=== PATIENT | male | born 1945 | race Caucasian/White ===

== ENCOUNTER 2020-02-03 07:42 | Inpatient (IN) | payer OTHER ==
[~2020-02-03] VITALS: Ht 167.6 cm; Wt 63.6 kg
[2020-02-03] MEDS ORDERED: ARIP2TAB35 PO (08:56)
[2020-02-03] MEDS ORDERED: LISI1TAB23 PO (08:56)
[2020-02-03] MEDS ORDERED: CHOL10003 PO (08:56)
[2020-02-03] MEDS ORDERED: CRESTOR40 MG PO (08:56)
[2020-02-03] MEDS ORDERED: VIT1TABL8 PO (08:56)
[2020-02-03] MEDS ORDERED: LORA0.5T21 PO (08:56)
[2020-02-03] MEDS ORDERED: BUSP30TA PO (08:56)
[2020-02-03] MEDS ORDERED: PARO10TA57 PO (08:56)
[2020-02-03] MEDS ORDERED: TAMS0.4C97 PO (08:56)
[2020-02-03] MEDS ORDERED: ASPI-889 PO (08:56)
[2020-02-03] MEDS ORDERED: TADA5TAB PO (08:56)
[2020-02-03] MEDS ORDERED: FLUO10CA13 PO (09:29)
[2020-02-03 10:24] VITALS: BP 115/55
[2020-02-03] MEDS ORDERED: MAGNESIUM HYDROXIDE 2,400 MG/30 ML ORAL.SUSP. PO PRN (11:15)
[2020-02-03] MEDS ORDERED: METHYL SALICYLATE/MENTHOL TOPICAL OINTMENT 57GM TUBE. TP PRN (11:15)
[2020-02-03] MEDS ORDERED: MAG HYDROX/AL HYDROX/SIMETH 30 ML ORAL.SUSP PO PRN (11:15)
[2020-02-03] MEDS ORDERED: ACETAMINOPHEN 325 MG TABLET PO PRN (11:15)
[2020-02-03 14:21] LABS: BASO % 0 % (0-3); EOS # 0.1 x10^3/uL (0.0-0.7); EOS % 2 % (0-3); HEMATOCRIT 45.4 % (39.0-53.0); HEMOGLOBIN 15.3 g/dL (13.0-17.5); LYMPH # 1.6 x10^3/uL (1.0-4.8); LYMPH % 20 % (24-48); MEAN CORPUSCULAR HEMOGLOBIN 33 pg (25-35); MEAN CORPUSCULAR HGB CONC 34 g/dL (31-37); MEAN CORPUSCULAR VOLUME 99 fL (79-100); MONO # 0.9 x10^3/uL (0.0-1.1); MONO % 11 % (0-9); NEUT # 5.5 x10^3uL (1.8-7.7); NEUT % 67 % (31-73); PLATELET COUNT 111 x10^3/uL (140-400); RED BLOOD COUNT 4.61 x10^6/uL (4.30-5.70); RED CELL DISTRIBUTION WIDTH 13.9 % (11.5-14.5); WHITE BLOOD COUNT 8.2 x10^3/uL (4.0-11.0)
[2020-02-03 14:38] LABS: BACTERIA,URINE 0 /HPF (0-FEW); BILIRUBIN,URINE NEG (NEG); CLARITY,URINE CLEAR; COLOR,URINE YELLOW; GLUCOSE,URINE NEG (NEG); NITRITE,URINE NEG (NEG); RBC,URINE OCC /HPF (0-2); SQUAMOUS EPITHELIAL CELL,UR OCC /LPF; UROBILINOGEN,URINE 0.2 mg/dL (0.2 mg/dL); WBC,URINE OCC /HPF (0-4)
[2020-02-03 15:33] LABS: ALBUMIN 3.6 g/dL (3.4-5.0); CREATININE 1.4 mg/dL (0.7-1.3); GFR 49.4; MAGNESIUM 2.1 mg/dL (1.8-2.4); POTASSIUM 4.2 mmol/L (3.5-5.1); TOTAL BILIRUBIN 0.5 mg/dL (0.2-1.0); TOTAL PROTEIN 7.1 g/dL (6.4-8.2)
[2020-02-03 15:45] VITALS: BP 110/55
[2020-02-03 16:08] LABS: THYROID STIM HORMONE (TSH) 1.582 uIU/mL (0.358-3.740)
--- NOTE | 2020-02-03 17:36 | CONS ---
DATE OF CONSULTATION: 02/03/2020 REASON FOR CONSULTATION: Medical management. HISTORY OF PRESENT ILLNESS: The patient is a 74-year-old male patient who was referred [facility] from [facility] on account of being depressed, feeling antsy all the time, having a total mental breakdown, cold sweats, sits in dark, fleeting thoughts of suicide, difficulty concentration, all this in a background of major depressive disorder. PAST MEDICAL HISTORY: Significant for male erectile dysfunction, essential hypertension, hyperlipidemia, obstructive pulmonary disease, type 2 diabetes mellitus, benign prostatic hypertrophy. He has also abdominal aortic aneurysm. PAST SURGICAL HISTORY: Unremarkable except for removal of basal cell carcinoma of his nose. PAST PSYCHIATRIC HISTORY: Significant for anxiety and depression. ALLERGIES: HE IS ALLERGIC TO LIPITOR AND ZETIA. MEDICATIONS: He is currently on following medications: He is on Flomax 0.4 mg daily, Crestor 40 mg at bedtime, lisinopril/hydrochlorothiazide 10/12.5 mg once a day, aspirin 81 mg once a day, fluoxetine 10 mg daily, Abilify 2 mg daily, lorazepam 0.5 mg twice a day, buspirone 30 mg twice a day, cholecalciferol 25 mcg once a day and multivitamin with mineral 1 tablet once a day. FAMILY HISTORY: Noncontributory. SOCIAL HISTORY: He is , lives with his . He has 2 sons, 1 at the age of 17 because of leukemia. The other son lives in [facility] and has 3 sons and a daughter. He is vaping, although trying to quit that. He does not drink alcohol or use recreational drugs. 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 REVIEW OF SYSTEMS: As per history of present illness. PHYSICAL EXAMINATION GENERAL: When I saw him this afternoon, he was sitting comfortably in his chair, in no apparent respiratory distress. There was no pallor, jaundice, cyanosis or thyromegaly. No jugular venous distention. No limb edema. VITAL SIGNS: His heart rate was 66, blood pressure was 110/55, temperature 97.1, respiratory rate was 16 and oxygen saturation was 94% on room air. HEAD, EYES, EARS, NOSE AND THROAT: Showed normocephalic, atraumatic. NECK: Supple. HEART: Showed normal first and second heart sounds. No gallop, rub or murmur. CHEST: Clear to auscultation. No crepitation or rhonchi. ABDOMEN: Distended, soft, nontender. No guarding or rigidity. No organomegaly. All hernial orifices intact. Bowel sounds normal. NEUROLOGIC: He was awake, alert, responding appropriately. All cranial nerves intact. EXTREMITIES: He moves all extremities without difficulty, ambulates without assistance or assistive devices. LABORATORY DATA: Showed white cell count of 8200, hemoglobin 15.3, hematocrit 45, MCV 99 and platelet count of 111,000. His chemistry showed a serum sodium 140, potassium 4.2, chloride 105, bicarbonate 25, anion gap of 10, BUN 30, creatinine 1.4, estimated GFR was 49 mL per minute. His glucose was 79, calcium was 9, magnesium was 2.1. Serum iron was 87, TIBC was 288 and iron saturation was 30. His total bilirubin, AST, ALT, alkaline phosphatase were normal. Total protein was 7.1, albumin was 3.6. His serum triglycerides were 84, total cholesterol 170, LDL was 97, VLDL was 16, HDL was 57, the ratio was 2. His TSH was normal at 1.582. His urinalysis showed the urine was yellow, clear with a pH of 6, specific gravity of 1.020. The urine was negative for protein, glucose, ketones, trace of blood and negative for nitrite and bilirubin. The urine was negative for leukocyte esterase, occasional rbc's, occasional wbc's and no bacteria. IMPRESSION: In summary, this is a 74-year-old male patient who was admitted on account of being depressed, feeling antsy all the time, having a total mental breakdown, cold sweats, sits in the dark, fleeting thoughts of suicide, difficulty concentrating, all this in a background of major depressive disorder. He has multiple medical problems including abdominal aortic aneurysm that is about 5.5, hypertension, hyperlipidemia, chronic obstructive pulmonary disease, type 2 diabetes and benign prostatic hypertrophy. All in all, the patient seemed to be medically stable. All his vital signs are stable. All his lab work are within acceptable range. He does have mild impaired kidney function. PLAN: My plan is to obviously review all the labs that are still pending at the time of this dictation and make any necessary recommendation. Thank you, Dr. Barroso, for allowing me to participate in the care of this patient. DEEJAY NICHOLSON MD DR: JOHNSON/elijah JOB#: [id number] / [id number]
--- NOTE | 2020-02-03 19:28 | HP ---
ADMIT DATE: 02/03/2020 PSYCHIATRIC ADMISSION HISTORY/EVALUATION This note covers elements not covered in my initial note 02/03/2020. I met with the patient evening of 02/03/2020 on telehealth rounds with ERENDIRA Hwang. Previously discussed with Radha Seymour, major donor coordinator. IDENTIFYING DATA: The patient is a 74-year-old male referred to us from the [facility]. The patient resides at home, has been getting increasingly depressed, anxious, and complains of feeling "antsy" all the time. He states he is having a "total mental breakdown." He admits to having cold sweats, sits in the dark, has fleeting suicidal thoughts, difficulty concentrating. His works at a flower shop during the day and he is alone at home; ruminating, obsessive, depressed, hopeless, helpless, worthless. He has failed [facility] resulting in this referral. CHIEF COMPLAINT: "I am having a total mental breakdown." HISTORY OF PRESENT ILLNESS: The patient has a history of worsening symptoms of depression, feeling hopeless, helpless, worthless, anxious with fleeting suicidal ideation and obsessive thought processes. No clear history of bipolar disorder or homicidal ideation. Cognitively, he has been reasonably intact. PAST PSYCHIATRIC HISTORY: The patient states he had a similar mental breakdown many years ago. He was treated on Ativan, did very well fairly quickly. PAST MEDICAL HISTORY: Positive for erectile dysfunction, abdominal aortic aneurysm, basal cell carcinoma of the nose, hypertension, hyperlipidemia, COPD, type 2 diabetes mellitus, BPH. ALLERGIES: To LIPITOR and ZETIA. CODE STATUS: Full code. ACCU-CHEKS: None. DIET: Regular. Takes medications whole, ambulates up ad william. SOCIAL HISTORY: No history of alcohol, drug abuse, physical, sexual or elder abuse. He is not known to be a perpetrator. 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 CURRENT PSYCHOTROPICS: Abilify 2 mg a day, BuSpar 30 mg b.i.d., Prozac 10 mg a day, Ativan 0.5 mg b.i.d. FAMILY HISTORY: Noncontributory. REVIEW OF SYSTEMS: Positive for anxiety, restlessness. No CV, , pulmonary, eye, ENT system symptoms on review. MENTAL STATUS EXAMINATION: The patient is reasonably oriented. Speech is coherent, abstraction fair, computation impaired, language function intact. Mood and affect is depressed, anxious. No active suicidal ideation. Attention span is short. IMPRESSION: Major depressive disorder, recurrent; anxiety disorder, unspecified. PLAN: Admit to Geropsychiatry Unit at [facility]. I will see the patient daily individually from a psychiatric standpoint. Medical followup with Dr. Stevens/Dr. Daniel. Continue the patient on his current medications. [facility] Consider increasing Prozac, stopping the Abilify since he may be having some akathisia from this, maintaining BuSpar, may consider using Seroquel for anxiety. We will make further adjustments as clinically indicated. ESTIMATED LENGTH OF STAY: 10-12 days. DISPOSITION: Plans back home to outpatient treatment at the [facility] when stable. MAN Sunny RICH MD DR: SOLIS/elijah JOB#: [id number] / [id number]
[2020-02-03] MEDS: busPIRone 15 MG TABLET. PO SCH (20:27)
[2020-02-03] MEDS: LORazepam 0.5 MG TABLET PO SCH (20:27)
[2020-02-03] MEDS ORDERED: NON FORMULARY ITEM (Rosuvastatin Calcium (Crestor) 40 MG) PO SCH (21:00)
--- NOTE | 2020-02-03 22:29 | PDOC ---
Exam Note: Chago Note: Please also refer to the separate dictated note~for this date of service dictated separately.~Patient seen individually. Discussed the patient with Nursing staff reviewed the chart.~Reviewed interim history and current functioning. Reviewed vital signs,~Labs/ Radiology~and current medications noted below. Continue current treatment with the changes noted in the dictated addendum note Assessment: Vital Signs/I&O: Vital Signs Date Time Temp Pulse Resp B/P (MAP) Pulse Ox O2 Delivery O2 Flow Rate FiO2 02/03/20 20:00 97.4 02/03/20 15:45 66 16 110/55 (73) 94 Room Air Labs: Laboratory Tests Test 02/03/20 11:35 02/03/20 11:50 White Blood Count 8.2 x10^3/uL (4.0-11.0) Red Blood Count 4.61 x10^6/uL (4.30-5.70) Hemoglobin 15.3 g/dL (13.0-17.5) Hematocrit 45.4 % (39.0-53.0) Mean Corpuscular Volume 99 fL (79-100) Mean Corpuscular Hemoglobin 33 pg (25-35) Mean Corpuscular Hemoglobin Concent 34 g/dL (31-37) Red Cell Distribution Width 13.9 % (11.5-14.5) Platelet Count 111 x10^3/uL (140-400) L Neutrophils (%) (Auto) 67 % (31-73) Lymphocytes (%) (Auto) 20 % (24-48) L Monocytes (%) (Auto) 11 % (0-9) H Eosinophils (%) (Auto) 2 % (0-3) Basophils (%) (Auto) 0 % (0-3) Neutrophils # (Auto) 5.5 x10^3uL (1.8-7.7) Lymphocytes # (Auto) 1.6 x10^3/uL (1.0-4.8) Monocytes # (Auto) 0.9 x10^3/uL (0.0-1.1) Eosinophils # (Auto) 0.1 x10^3/uL (0.0-0.7) Basophils # (Auto) 0.0 x10^3/uL (0.0-0.2) Sodium Level 140 mmol/L (136-145) Potassium Level 4.2 mmol/L (3.5-5.1) Chloride Level 105 mmol/L (98-107) Carbon Dioxide Level 25 mmol/L (21-32) Anion Gap 10 (6-14) Blood Urea Nitrogen 30 mg/dL (8-26) H Creatinine 1.4 mg/dL (0.7-1.3) H Estimated GFR (Cockcroft-Gault) 49.4 BUN/Creatinine Ratio 21 (6-20) H Glucose Level 79 mg/dL (70-99) Calcium Level 9.0 mg/dL (8.5-10.1) Magnesium Level 2.1 mg/dL (1.8-2.4) Iron Level 87 ug/dL (65-175) Total Iron Binding Capacity 288 ug/dL (250-450) Iron Saturation 30 % (15-34) Total Bilirubin 0.5 mg/dL (0.2-1.0) Aspartate Amino Transferase (AST) 17 U/L (15-37) Alanine Aminotransferase (ALT) 21 U/L (16-63) Alkaline Phosphatase 85 U/L (46-116) Total Protein 7.1 g/dL (6.4-8.2) Albumin 3.6 g/dL (3.4-5.0) Albumin/Globulin Ratio 1.0 (1.0-1.7) Triglycerides Level 84 mg/dL (0-150) Cholesterol Level 170 mg/dL (0-200) LDL Cholesterol, Calculated 97 mg/dL (0-100) VLDL Cholesterol, Calculated 16 mg/dL (0-40) Non-HDL Cholesterol Calculated 113 mg/dL (0-129) HDL Cholesterol 57 mg/dL (40-60) Cholesterol/HDL Ratio 2.0 Thyroid Stimulating Hormone (TSH) 1.582 uIU/mL (0.358-3.740) Urine Collection Type Unknown Urine Color Yellow Urine Clarity Clear Urine pH 6.0 Urine Specific [place] 1.020 Urine Protein Neg (NEG-TRACE) Urine Glucose (UA) Neg mg/dL (NEG) Urine Ketones (Stick) Neg mg/dL (NEG) Urine Blood Trace (NEG) Urine Nitrite Neg (NEG) Urine Bilirubin Neg (NEG) Urine Urobilinogen Dipstick 0.2 mg/dL (0.2 mg/dL) Urine Leukocyte Esterase Neg (NEG) Urine RBC Occ /HPF (0-2) Urine WBC Occ /HPF (0-4) Urine Squamous Epithelial Cells Occ /LPF Urine Bacteria 0 /HPF (0-FEW) Urine Mucus Slight /LPF Current Medications: Meds: Current Medications Medications (Trade) Dose Ordered Sig/Zaire Route PRN Reason Start Time Stop Time Status Last Admin Dose Admin Lorazepam (Ativan) 0.5 mg BID PO 02/03/20 21:00 02/03/20 20:27 Buspirone HCl (Buspar) 30 mg BID PO 02/03/20 21:00 02/03/20 20:27 I have reviewed the current psychotropics carefully including drug interactions. Risk benefit ratio favors no change other than as noted in my dictated progress note. Diagnosis: Problems: (1) MDD (major depressive disorder) (2) Anxiety disorder, unspecified EDUARDO RICH MD Feb 03, 2020 22:29
[2020-02-04 02:06] LABS: THYROXINE 5.8 ug/dL (4.5-12.0)
[2020-02-04 05:38] LABS: HEMOGLOBIN A1C 6.2 % (4.8-5.6)
[2020-02-04 06:33] VITALS: BP 118/65
[2020-02-04] MEDS: busPIRone 15 MG TABLET. PO SCH (07:48)
[2020-02-04] MEDS: LORazepam 0.5 MG TABLET PO SCH ×2 (07:48→20:59)
[2020-02-04] MEDS: TAMSULOSIN 0.4 MG CAP.ER.24H. PO SCH (07:50)
[2020-02-04] MEDS: hydroCHLOROthiazide 12.5 MG CAPSULE PO SCH (07:51)
[2020-02-04] MEDS: CHOLECALCIFEROL (VITAMIN D3) 1,000 UNIT TABLET PO SCH (07:51)
[2020-02-04] MEDS: MULTIVITAMIN I-VITE TABLET. PO SCH (07:51)
[2020-02-04] MEDS: LISINOPRIL 10 MG TABLET PO SCH (07:51)
[2020-02-04] MEDS: ASPIRIN ENTERIC COATED 81 MG TABLET.DR. PO SCH (07:51)
[2020-02-04] MEDS ORDERED: ARIPiprazole 2 MG TABLET PO SCH (09:00)
[2020-02-04] MEDS ORDERED: FLUoxetine HCL 10 MG CAPSULE PO SCH (09:00)
[2020-02-04 15:53] VITALS: BP 97/57
--- NOTE | 2020-02-04 21:58 | PDOC ---
Exam Note: Chago Note: Please also refer to the separate dictated note~for this date of service dictated separately.~Patient seen individually. Discussed the patient with Nursing staff reviewed the chart.~Reviewed interim history and current functioning. Reviewed vital signs,~Labs/ Radiology~and current medications noted below. Continue current treatment with the changes noted in the dictated addendum note Assessment: Vital Signs/I&O: Vital Signs Date Time Temp Pulse Resp B/P (MAP) Pulse Ox O2 Delivery O2 Flow Rate FiO2 02/04/20 15:53 97.4 71 16 97/57 (70) 93 Room Air I & O 02/03/20 02/03/20 02/04/20 15:00 23:00 07:00 Intake Total 180 ml 360 ml Balance 180 ml 360 ml Current Medications: Meds: Current Medications Medications (Trade) Dose Ordered Sig/Zaire Route PRN Reason Start Time Stop Time Status Last Admin Dose Admin Aripiprazole (Abilify) 2 mg DAILY PO 02/04/20 09:00 02/04/20 18:28 DC 02/04/20 07:51 Aspirin (Aspirin Enteric Coated) 81 mg DAILY PO 02/04/20 09:00 02/04/20 07:51 Vitamin D (Vitamin D3) 1,000 unit DAILY PO 02/04/20 09:00 02/04/20 07:51 Fluoxetine HCl (PROzac) 10 mg DAILY PO 02/04/20 09:00 02/04/20 18:29 DC 02/04/20 07:51 Tamsulosin HCl (Flomax) 0.4 mg DAILY PO 02/04/20 09:00 02/04/20 07:50 Multivitamins/ Minerals (I-Rach) 1 tab DAILY PO 02/04/20 09:00 02/04/20 07:51 Lisinopril (Prinivil) 10 mg DAILY PO 02/04/20 09:00 02/04/20 07:51 Hydrochlorothiazide (Microzide) 12.5 mg DAILY PO 02/04/20 09:00 02/04/20 07:51 I have reviewed the current psychotropics carefully including drug interactions. Risk benefit ratio favors no change other than as noted in my dictated progress note. Diagnosis: Problems: (1) Anxiety disorder, unspecified (2) MDD (major depressive disorder) EDUARDO RICH MD Feb 04, 2020 21:58
[2020-02-05 06:39] VITALS: BP 106/57
[2020-02-05] MEDS: LISINOPRIL 10 MG TABLET PO SCH (09:00)
[2020-02-05] MEDS: hydroCHLOROthiazide 12.5 MG CAPSULE PO SCH (09:00)
[2020-02-05] MEDS: MULTIVITAMIN I-VITE TABLET. PO SCH (09:13)
[2020-02-05] MEDS: LORazepam 0.5 MG TABLET PO SCH ×2 (09:13→20:35)
[2020-02-05] MEDS: TAMSULOSIN 0.4 MG CAP.ER.24H. PO SCH (09:13)
[2020-02-05] MEDS: ASPIRIN ENTERIC COATED 81 MG TABLET.DR. PO SCH (09:13)
[2020-02-05] MEDS: CHOLECALCIFEROL (VITAMIN D3) 1,000 UNIT TABLET PO SCH (09:15)
[2020-02-05] MEDS: ARIPiprazole 2 MG TABLET PO SCH (09:17)
[2020-02-05] MEDS: FLUoxetine HCL 20 MG CAPSULE PO SCH (09:18)
[2020-02-05 15:45] VITALS: BP 112/54
--- NOTE | 2020-02-05 19:15 | PN ---
DATE: 02/04/2020 PSYCHIATRIC PROGRESS NOTE This late entry 02/04/2020 covers elements not covered in my initial note. SUBJECTIVE: I met with the patient evening of 02/04/2020 on telehealth rounds with ERENDIRA Hwang. The patient slept 6-3/4 hours previous night. He has been somewhat withdrawn, isolative, spends much time in his room. Nursing staff offered him Gilberto to listen to music and explore other activities he might be interested in, but he showed little interest. [facility] as well. His called and talked to him. He does complain of a hand tremor, but the akathisia perhaps is a little better since we reduced the Abilify. Explored his history at further length. While home, he and his is working during the day. He isolates himself at home, fairly withdrawn in a dark room. We addressed ways to change this. REVIEW OF SYSTEMS: No CV, , pulmonary, eye system symptoms on review. MENTAL STATUS EXAMINATION: The patient is reasonably oriented. Speech is coherent, has some latency. Abstraction fair, computation impaired, language function intact, attention span short. Mood and affect is depressed. No suicidal ideation. LABORATORY DATA: Reviewed. IMPRESSION: Major depressive disorder; anxiety disorder, unspecified. Rest unchanged. PLAN: Reduce Abilify from 2 mg a day down to 1 mg a day. Stop the BuSpar, increase Prozac from 10 mg a day to 20 mg a day. Maintain Ativan 0.5 mg b.i.d. Adjust further as clinically indicated. MAN Sunny RICH MD DR: SOLIS/elijah JOB#: [id number] / [id number]
--- NOTE | 2020-02-05 22:10 | PDOC ---
Exam Note: Chago Note: Please also refer to the separate dictated note~for this date of service dictated separately.~Patient seen individually. Discussed the patient with Nursing staff reviewed the chart.~Reviewed interim history and current functioning. Reviewed vital signs,~Labs/ Radiology~and current medications noted below. Continue current treatment with the changes noted in the dictated addendum note Assessment: Vital Signs/I&O: Vital Signs Date Time Temp Pulse Resp B/P (MAP) Pulse Ox O2 Delivery O2 Flow Rate FiO2 02/05/20 20:08 97.8 95 02/05/20 15:45 67 16 112/54 (73) 02/04/20 15:53 Room Air I & O 02/04/20 02/04/20 02/05/20 15:00 23:00 07:00 Intake Total 600 ml 360 ml Balance 600 ml 360 ml Labs: Laboratory Tests Test 02/05/20 07:56 Glucose (Fingerstick) 79 mg/dL (70-99) Current Medications: Meds: Current Medications Medications (Trade) Dose Ordered Sig/Zaire Route PRN Reason Start Time Stop Time Status Last Admin Dose Admin Aripiprazole (Abilify) 1 mg DAILY PO 02/05/20 09:00 02/05/20 09:17 Fluoxetine HCl (PROzac) 20 mg DAILY PO 02/05/20 09:00 02/05/20 09:18 I have reviewed the current psychotropics carefully including drug interactions. Risk benefit ratio favors no change other than as noted in my dictated progress note. Diagnosis: Problems: (1) Anxiety disorder, unspecified (2) MDD (major depressive disorder) EDUARDO RICH MD Feb 05, 2020 22:10
[2020-02-06 06:22] VITALS: BP 108/62
[2020-02-06] MEDS: ASPIRIN ENTERIC COATED 81 MG TABLET.DR. PO SCH (09:24)
[2020-02-06] MEDS: ARIPiprazole 2 MG TABLET PO SCH (09:24)
[2020-02-06] MEDS: CHOLECALCIFEROL (VITAMIN D3) 1,000 UNIT TABLET PO SCH (09:25)
[2020-02-06] MEDS: TAMSULOSIN 0.4 MG CAP.ER.24H. PO SCH (09:25)
[2020-02-06] MEDS: FLUoxetine HCL 20 MG CAPSULE PO SCH (09:26)
[2020-02-06] MEDS: MULTIVITAMIN I-VITE TABLET. PO SCH (09:26)
[2020-02-06] MEDS: LORazepam 0.5 MG TABLET PO SCH ×2 (09:26→19:57)
[2020-02-06 15:14] VITALS: BP 90/48
--- NOTE | 2020-02-06 21:54 | PDOC ---
Exam Note: Chago Note: Please also refer to the separate dictated note~for this date of service dictated separately.~Patient seen individually. Discussed the patient with Nursing staff reviewed the chart.~Reviewed interim history and current functioning. Reviewed vital signs,~Labs/ Radiology~and current medications noted below. Continue current treatment with the changes noted in the dictated addendum note Assessment: Vital Signs/I&O: Vital Signs Date Time Temp Pulse Resp B/P (MAP) Pulse Ox O2 Delivery O2 Flow Rate FiO2 02/06/20 15:14 97.9 66 16 90/48 (62) 95 02/04/20 15:53 Room Air I & O 02/05/20 02/05/20 02/06/20 15:00 23:00 07:00 Intake Total 480 ml 460 ml Balance 480 ml 460 ml Current Medications: I have reviewed the current psychotropics carefully including drug interactions. Risk benefit ratio favors no change other than as noted in my dictated progress note. Diagnosis: Problems: (1) Anxiety disorder, unspecified (2) MDD (major depressive disorder) EDUARDO RICH MD Feb 06, 2020 21:54
[2020-02-07 06:28] VITALS: BP 90/49
[2020-02-07] MEDS: TAMSULOSIN 0.4 MG CAP.ER.24H. PO SCH (10:11)
[2020-02-07] MEDS: FLUoxetine HCL 20 MG CAPSULE PO SCH (10:11)
[2020-02-07] MEDS: ARIPiprazole 2 MG TABLET PO SCH (10:12)
[2020-02-07] MEDS: ASPIRIN ENTERIC COATED 81 MG TABLET.DR. PO SCH (10:12)
[2020-02-07] MEDS: MULTIVITAMIN I-VITE TABLET. PO SCH (10:12)
[2020-02-07] MEDS: CHOLECALCIFEROL (VITAMIN D3) 1,000 UNIT TABLET PO SCH (10:13)
[2020-02-07] MEDS: LORazepam 0.5 MG TABLET PO SCH ×2 (12:02→20:27)
--- NOTE | 2020-02-07 12:53 | PN ---
DATE: 02/06/2020 PSYCHIATRIC PROGRESS NOTE This late entry 02/06/2020 covers elements not covered in my initial note. SUBJECTIVE: I met with the patient evening of 02/06/2020 on telehealth rounds. Discussed with ERENDIRA Rivera. The patient slept 7 hours previous night. He has been coming out of his room, walking in the hallway, an improvement for him. No suicidal ideation. Reviewed information from the patient's who expressed concern that prior to admission, she felt he could hurt himself, especially when he was at home during the day alone and she was at work at the [employer] shop. He denies active suicidal ideation on questioning. REVIEW OF SYSTEMS: No CV, , pulmonary, eye system symptoms on review. MENTAL STATUS EXAM: Reasonably oriented. Speech is coherent, has some latency. Abstraction fair, computation reasonable, language function intact. Mood and affect still depressed, but improved. No suicidal ideation. We discussed at length how to increase social interactions despite isolation consequent to the recent pandemic including using Zoom calls with multiple friends. He states he is interested in [employer] cars and goes to car shows as well and was able to discuss some of his interests individually. LABORATORY DATA: Reviewed. IMPRESSION: Major depressive disorder in partial remission; anxiety disorder, unspecified. PLAN: Continue psychotropics from initial note. Prozac 20 mg a day, Abilify 1 mg a day, Ativan 0.5 mg b.i.d., await records from [facility]. Rest unchanged for now. EDUARDO RICH MD DR: SOLIS/elijah JOB#: [id number] / [id number]
[2020-02-07 15:49] VITALS: BP 96/56
[2020-02-07 20:24] VITALS: BP 133/56
--- NOTE | 2020-02-07 22:00 | PDOC ---
Exam Note: Chago Note: Please also refer to the separate dictated note~for this date of service dictated separately.~Patient seen individually. Discussed the patient with Nursing staff reviewed the chart.~Reviewed interim history and current functioning. Reviewed vital signs,~Labs/ Radiology~and current medications noted below. Continue current treatment with the changes noted in the dictated addendum note Assessment: Vital Signs/I&O: Vital Signs Date Time Temp Pulse Resp B/P (MAP) Pulse Ox O2 Delivery O2 Flow Rate FiO2 02/07/20 21:06 97.6 93 02/07/20 20:24 64 133/56 (81) 02/07/20 15:49 16 02/04/20 15:53 Room Air I & O 02/06/20 02/06/20 02/07/20 15:00 23:00 07:00 Intake Total 820 ml 400 ml Balance 820 ml 400 ml Current Medications: I have reviewed the current psychotropics carefully including drug interactions. Risk benefit ratio favors no change other than as noted in my dictated progress note. Diagnosis: Problems: (1) Anxiety disorder, unspecified (2) MDD (major depressive disorder) EDUARDO RICH MD Feb 07, 2020 22:00
--- NOTE | 2020-02-07 22:28 | PN ---
DATE: 02/05/2020 PSYCHIATRIC PROGRESS NOTE This late entry 02/05/2020 covers elements not covered in my initial note. SUBJECTIVE: I met with the patient evening of 02/05/2020 at length earlier in the day. The patient was reviewed at treatment team meeting with Radha Seymour, social service and ERENDIRA Rowe. We will obtain records from the [facility] for the past psychotropic medication interventions. Appetite remains 100%. REVIEW OF SYSTEMS: Positive for some tiredness. No CV, , pulmonary, eye system symptoms on review. MENTAL STATUS EXAM: Oriented reasonably. Speech is coherent, abstraction fair, computation impaired, language function intact, attention span short. Mood and affect still depressed, but showing improvement and he has been coming out of his room a little bit more. No suicidal ideation. LABORATORY DATA: Reviewed. IMPRESSION: Major depressive disorder, recurrent. Akathisia appears to be improving. Rest unchanged. PLAN: Continue the increased Prozac 20 mg a day and we stopped the BuSpar, reduce the Abilify from 2 mg a day to 1 mg a day, consequent to akathisia. Maintain Ativan 0.5 b.i.d. Continue rest unchanged. Adjust gradually as clinically indicated. EDUARDO RICH MD DR: SOLIS/elijah JOB#: [id number] / [id number]
[2020-02-08 05:40] VITALS: BP 114/58
[2020-02-08] MEDS: CHOLECALCIFEROL (VITAMIN D3) 1,000 UNIT TABLET PO SCH (08:59)
[2020-02-08] MEDS: MULTIVITAMIN I-VITE TABLET. PO SCH (08:59)
[2020-02-08] MEDS: FLUoxetine HCL 10 MG CAPSULE PO SCH (08:59)
[2020-02-08] MEDS: ARIPiprazole 2 MG TABLET PO SCH (09:00)
[2020-02-08] MEDS: LORazepam 0.5 MG TABLET PO SCH ×2 (09:00→20:14)
[2020-02-08] MEDS: ASPIRIN ENTERIC COATED 81 MG TABLET.DR. PO SCH (09:00)
--- NOTE | 2020-02-08 12:28 | TX PLAN ---
Interdisciplinary Tx Plan Admission Information Feb 03, 2020 at 10:03 Legal Status (on Admission): Voluntary DPOA/Guardian Name: Pt is his own person Contact Other Contact Name: Viviane Rodarte Other Contact Verified Code Status: Full Code Allergies: Coded Allergies: atorvastatin (Verified Allergy, Unknown, 02/03/20) ezetimibe (Verified Allergy, Unknown, 02/03/20) Diagnoses Primary Diagnosis: MDD recurrent, severe Reasons for Admission: Depressed, Suicidal ideation, Other Problem in Patient's Words: He has always suffered from depression. But this is the worst I have seen him Additional Admission Comments: According to the intake, pt is very depressed and feels "antsy" all the time. Pt is having a "total mental breakdown", cold sweats, sits in the dark, fleeting thoughts of suicide, difficult to concentrate, decreased energy. Problems Active Problems: Withdrawn flat affect anxiety difficulty concentrating Inactive Problems: Medication compliance Pt Strengths/Limitations Ability for [place]: Fair Cognitive Functioning/Ability: Fair Communication Skills/Ability: Fair Financial Resources: Fair Insight/Judgement: Fair Intellectual Ability: Fair Physical Health: Fair Social Skills: Fair Stability in Family: Good Stability in School/Work: Fair Verbal Skills: Good Discharge Criteria Discharge Criteria: Able meet basic life need, Able to meet health needs, Adequate arrangements @DC, Verbal commit aftercare, Adequate self-care, Improved behavior, Improved mood/thought Preliminary Discharge Plan Preliminary DC Plan: Current Living Arrange. Special Precautions Fall Risk: Low Initial D/C Plan Pt will plan to discharge home with and continued [place] services Identified Discharge Needs: Primary Care follow-up Psychiatrist Counseling Currently Utilized Resources Currently Utilized Resources/P: PCP [place] services for mental health Referrals Community Resources: Counseling Identified Problems/Hx/Goals Objectives/Short-Term Goals Short Term Goals: Decrease Isolation, Dec. Symp. Depression, Medication Stabilization, Promote Coping Skill Short Term Goals in Patient's: Decrease suicidality and get out of here so I can get back to normal Interventions/Frequency Staff Interventions/Frequency&: Psychiatrist to assess pt at least 3x per week. Credit Review Analyst to assess pt at least 2x per week. Nursing to assess behavior, medications and complete 15 minute checks Encourage group participation or 1:1 engagement based of Activity Dept. assessment. 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 Treatment Plan Explained Patient/Service Parts Driver had this treatment plan explained to him/her as indicated by the signature below and has been given the opportunity to ask questions and make suggestions: Date: Patient/Service Parts Driver Signature: Patient/Service Parts Driver Decline: LEIGH ANN Angeles Feb 08, 2020 12:28
[2020-02-08 15:34] VITALS: BP 109/68
[2020-02-08 20:31] VITALS: BP 120/71
--- NOTE | 2020-02-08 22:04 | PDOC ---
Exam Note: Chago Note: Please also refer to the separate dictated note~for this date of service dictated separately.~Patient seen individually. Discussed the patient with Nursing staff reviewed the chart.~Reviewed interim history and current functioning. Reviewed vital signs,~Labs/ Radiology~and current medications noted below. Continue current treatment with the changes noted in the dictated addendum note Assessment: Vital Signs/I&O: Vital Signs Date Time Temp Pulse Resp B/P (MAP) Pulse Ox O2 Delivery O2 Flow Rate FiO2 02/08/20 20:31 97.5 61 16 120/71 (87) 95 02/04/20 15:53 Room Air I & O 02/07/20 02/07/20 02/08/20 15:00 23:00 07:00 Intake Total 440 ml 480 ml Balance 440 ml 480 ml Current Medications: Meds: Current Medications Medications (Trade) Dose Ordered Sig/Zaire Route PRN Reason Start Time Stop Time Status Last Admin Dose Admin Fluoxetine HCl (PROzac) 30 mg DAILY PO 02/08/20 09:00 02/08/20 08:59 I have reviewed the current psychotropics carefully including drug interactions. Risk benefit ratio favors no change other than as noted in my dictated progress note. Diagnosis: Problems: (1) Anxiety disorder, unspecified (2) MDD (major depressive disorder) EDUARDO RICH MD Feb 08, 2020 22:04
[2020-02-09 07:01] VITALS: BP 111/54
[2020-02-09] MEDS: MULTIVITAMIN I-VITE TABLET. PO SCH (08:08)
[2020-02-09] MEDS: FLUoxetine HCL 10 MG CAPSULE PO SCH (08:08)
[2020-02-09] MEDS: CHOLECALCIFEROL (VITAMIN D3) 1,000 UNIT TABLET PO SCH (08:08)
[2020-02-09] MEDS: ASPIRIN ENTERIC COATED 81 MG TABLET.DR. PO SCH (08:08)
[2020-02-09] MEDS: ARIPiprazole 2 MG TABLET PO SCH (08:08)
[2020-02-09] MEDS: LORazepam 0.5 MG TABLET PO SCH ×2 (08:10→20:41)
[2020-02-09 16:15] VITALS: BP 116/54
--- NOTE | 2020-02-09 22:17 | PN ---
DATE: 02/07/2020 PSYCHIATRIC PROGRESS NOTE This late entry 02/07/2020 covers elements not covered in my initial note. SUBJECTIVE: I met with the patient evening of 02/07/2020. Overall, the patient has been little less depressed coming out more from his room. Denies active suicidal ideation. REVIEW OF SYSTEMS: No CV, , pulmonary, eye, ENT system symptoms on review. MENTAL STATUS EXAM: Oriented reasonably. Speech is coherent, abstraction fair, computation impaired, language function intact, attention span short. Mood and affect still depressed, but improved. has shared with nursing staff her concern that patient could have hurt himself prior to admission while he was at home alone and she was at work at the [employer]. Currently, denies suicidal ideation. LABORATORY DATA: Reviewed. IMPRESSION: Unchanged from initial note. PLAN: No change from initial note. Prozac is at 30 mg a day. We may need to increase it in due course. EDUARDO RICH MD DR: SOLIS/elijah JOB#: [id number] / [id number]
--- NOTE | 2020-02-09 22:19 | PDOC ---
Exam Note: Chago Note: Please also refer to the separate dictated note~for this date of service dictated separately.~Patient seen individually. Discussed the patient with Nursing staff reviewed the chart.~Reviewed interim history and current functioning. Reviewed vital signs,~Labs/ Radiology~and current medications noted below. Continue current treatment with the changes noted in the dictated addendum note Assessment: Vital Signs/I&O: Vital Signs Date Time Temp Pulse Resp B/P (MAP) Pulse Ox O2 Delivery O2 Flow Rate FiO2 02/09/20 16:15 99.1 64 16 116/54 (74) 94 02/04/20 15:53 Room Air I & O 02/08/20 02/08/20 02/09/20 15:00 23:00 07:00 Intake Total 600 ml 720 ml Balance 600 ml 720 ml Current Medications: I have reviewed the current psychotropics carefully including drug interactions. Risk benefit ratio favors no change other than as noted in my dictated progress note. Diagnosis: Problems: (1) Anxiety disorder, unspecified (2) MDD (major depressive disorder) EDUARDO RICH MD Feb 09, 2020 22:19
--- NOTE | 2020-02-09 22:22 | PN ---
DATE: 02/09/2020 PSYCHIATRIC PROGRESS NOTE This is a late entry. SUBJECTIVE: The patient was seen on rounds evening of 02/09/2020. Discussed with ERENDIRA Hwang. Overall, the patient has been coming out of his room a little bit more. He slept 7 hours previous night, gets more anxious in the evening. Denies suicidal ideation. He had low-grade temperature, but we will monitor this and I will defer to Dr. Daniel. During the individual visit, we discussed at length his hobbies of [employer] cars and attending car shows and his goes with him. He states she enjoys quilting and arts, reading, but they do spend time together and go out to eat frequently. REVIEW OF SYSTEMS: No CV, , pulmonary, eye system symptoms on review. MENTAL STATUS EXAM: Reasonably oriented. Speech is coherent, abstraction fair, computation impaired, language function intact. Mood and affect is improved. LABORATORY DATA: Reviewed. IMPRESSION: Unchanged from initial note. PLAN: No change from initial note. MAN Sunny RICH MD DR: SOLIS/elijah JOB#: [id number] / [id number]
--- NOTE | 2020-02-09 22:31 | PN ---
DATE: 02/08/2020 PSYCHIATRIC PROGRESS NOTE This late entry 02/08/2020 covers elements not covered in my initial note. SUBJECTIVE: I met with the patient evening of 02/08/2020 on telehealth rounds. The patient has been less depressed, coming out of his room more, slightly more interactive. Rest of the time he does withdraw to his room. REVIEW OF SYSTEMS: No CV, , pulmonary, eye system symptoms on review. Reliability fair. MENTAL STATUS EXAM: Reasonably oriented. Speech is coherent, abstraction fair, computation impaired, language function intact. Mood and affect still depressed, anxious, but better than before. No suicidal ideation. LABORATORY DATA: Reviewed. IMPRESSION: Unchanged from initial note. PLAN: No change from initial note. MAN Sunny RICH MD DR: SOLIS/elijah JOB#: [id number] / [id number]
[2020-02-10 05:54] VITALS: BP 123/51
[2020-02-10 06:48] LABS: BASO % 0 % (0-3); EOS # 0.2 x10^3/uL (0.0-0.7); EOS % 2 % (0-3); HEMATOCRIT 40.5 % (39.0-53.0); HEMOGLOBIN 13.9 g/dL (13.0-17.5); LYMPH % 28 % (24-48); MEAN CORPUSCULAR HEMOGLOBIN 34 pg (25-35); MEAN CORPUSCULAR HGB CONC 34 g/dL (31-37); MEAN CORPUSCULAR VOLUME 98 fL (79-100); MONO # 0.9 x10^3/uL (0.0-1.1); MONO % 12 % (0-9); NEUT # 4.2 x10^3uL (1.8-7.7); NEUT % 58 % (31-73); PLATELET COUNT 119 x10^3/uL (140-400); RED BLOOD COUNT 4.11 x10^6/uL (4.30-5.70); RED CELL DISTRIBUTION WIDTH 13.9 % (11.5-14.5); WHITE BLOOD COUNT 7.3 x10^3/uL (4.0-11.0)
[2020-02-10 06:58] LABS: ALBUMIN 2.9 g/dL (3.4-5.0); ALBUMIN/GLOBULIN RATIO 0.9 (1.0-1.7); CALCIUM 8.5 mg/dL (8.5-10.1); CREATININE 1.2 mg/dL (0.7-1.3); POTASSIUM 4.4 mmol/L (3.5-5.1); TOTAL BILIRUBIN 0.5 mg/dL (0.2-1.0); TOTAL PROTEIN 6.1 g/dL (6.4-8.2)
[2020-02-10] MEDS: ARIPiprazole 2 MG TABLET PO SCH (08:44)
[2020-02-10] MEDS: CHOLECALCIFEROL (VITAMIN D3) 1,000 UNIT TABLET PO SCH (08:45)
[2020-02-10] MEDS: MULTIVITAMIN I-VITE TABLET. PO SCH (08:45)
[2020-02-10] MEDS: FLUoxetine HCL 10 MG CAPSULE PO SCH (08:45)
[2020-02-10] MEDS: ASPIRIN ENTERIC COATED 81 MG TABLET.DR. PO SCH (08:45)
[2020-02-10] MEDS: LORazepam 0.5 MG TABLET PO SCH ×2 (08:48→20:41)
[2020-02-10 16:16] VITALS: BP 134/68
--- NOTE | 2020-02-10 22:02 | PDOC ---
Exam Note: Chago Note: Please also refer to the separate dictated note~for this date of service dictated separately.~Patient seen individually. Discussed the patient with Nursing staff reviewed the chart.~Reviewed interim history and current functioning. Reviewed vital signs,~Labs/ Radiology~and current medications noted below. Continue current treatment with the changes noted in the dictated addendum note Assessment: Vital Signs/I&O: Vital Signs Date Time Temp Pulse Resp B/P (MAP) Pulse Ox O2 Delivery O2 Flow Rate FiO2 02/10/20 16:16 98.2 63 19 134/68 (90) 95 Room Air I & O 02/09/20 02/09/20 02/10/20 15:00 23:00 07:00 Intake Total 240 ml 720 ml Balance 240 ml 720 ml Labs: Laboratory Tests Test 02/10/20 06:18 White Blood Count 7.3 x10^3/uL (4.0-11.0) Red Blood Count 4.11 x10^6/uL (4.30-5.70) L Hemoglobin 13.9 g/dL (13.0-17.5) Hematocrit 40.5 % (39.0-53.0) Mean Corpuscular Volume 98 fL (79-100) Mean Corpuscular Hemoglobin 34 pg (25-35) Mean Corpuscular Hemoglobin Concent 34 g/dL (31-37) Red Cell Distribution Width 13.9 % (11.5-14.5) Platelet Count 119 x10^3/uL (140-400) L Neutrophils (%) (Auto) 58 % (31-73) Lymphocytes (%) (Auto) 28 % (24-48) Monocytes (%) (Auto) 12 % (0-9) H Eosinophils (%) (Auto) 2 % (0-3) Basophils (%) (Auto) 0 % (0-3) Neutrophils # (Auto) 4.2 x10^3uL (1.8-7.7) Lymphocytes # (Auto) 2.0 x10^3/uL (1.0-4.8) Monocytes # (Auto) 0.9 x10^3/uL (0.0-1.1) Eosinophils # (Auto) 0.2 x10^3/uL (0.0-0.7) Basophils # (Auto) 0.0 x10^3/uL (0.0-0.2) Sodium Level 142 mmol/L (136-145) Potassium Level 4.4 mmol/L (3.5-5.1) Chloride Level 108 mmol/L (98-107) H Carbon Dioxide Level 29 mmol/L (21-32) Anion Gap 5 (6-14) L Blood Urea Nitrogen 23 mg/dL (8-26) Creatinine 1.2 mg/dL (0.7-1.3) Estimated GFR (Cockcroft-Gault) 59.0 BUN/Creatinine Ratio 19 (6-20) Glucose Level 91 mg/dL (70-99) Calcium Level 8.5 mg/dL (8.5-10.1) Total Bilirubin 0.5 mg/dL (0.2-1.0) Aspartate Amino Transferase (AST) 16 U/L (15-37) Alanine Aminotransferase (ALT) 17 U/L (16-63) Alkaline Phosphatase 80 U/L (46-116) Total Protein 6.1 g/dL (6.4-8.2) L Albumin 2.9 g/dL (3.4-5.0) L Albumin/Globulin Ratio 0.9 (1.0-1.7) L Current Medications: I have reviewed the current psychotropics carefully including drug interactions. Risk benefit ratio favors no change other than as noted in my dictated progress note. Diagnosis: Problems: (1) Anxiety disorder, unspecified (2) MDD (major depressive disorder) EDUARDO RICH MD Feb 10, 2020 22:02
[2020-02-11 05:20] VITALS: BP 103/59
[2020-02-11] MEDS: ASPIRIN ENTERIC COATED 81 MG TABLET.DR. PO SCH (08:28)
[2020-02-11] MEDS: FLUoxetine HCL 10 MG CAPSULE PO SCH (08:28)
[2020-02-11] MEDS: MULTIVITAMIN I-VITE TABLET. PO SCH (08:28)
[2020-02-11] MEDS: CHOLECALCIFEROL (VITAMIN D3) 1,000 UNIT TABLET PO SCH (08:29)
[2020-02-11] MEDS: ARIPiprazole 2 MG TABLET PO SCH (08:29)
[2020-02-11] MEDS: LORazepam 0.5 MG TABLET PO SCH ×2 (08:30→20:29)
[2020-02-11 16:13] VITALS: BP 108/60
--- NOTE | 2020-02-11 22:01 | PDOC ---
Exam Note: Hcago Note: Please also refer to the separate dictated note~for this date of service dictated separately.~Patient seen individually. Discussed the patient with Nursing staff reviewed the chart.~Reviewed interim history and current functioning. Reviewed vital signs,~Labs/ Radiology~and current medications noted below. Continue current treatment with the changes noted in the dictated addendum note Assessment: Vital Signs/I&O: Vital Signs Date Time Temp Pulse Resp B/P (MAP) Pulse Ox O2 Delivery O2 Flow Rate FiO2 02/11/20 19:51 98.6 97 02/11/20 16:13 61 18 108/60 (76) 02/10/20 16:16 Room Air I & O 02/10/20 02/10/20 02/11/20 15:00 23:00 07:00 Intake Total 720 ml 360 ml Balance 720 ml 360 ml Current Medications: I have reviewed the current psychotropics carefully including drug interactions. Risk benefit ratio favors no change other than as noted in my dictated progress note. Diagnosis: Problems: (1) Anxiety disorder, unspecified (2) MDD (major depressive disorder) EDUARDO RICH MD Feb 11, 2020 22:01
[2020-02-12 05:49] VITALS: BP 116/52
[2020-02-12] MEDS: MULTIVITAMIN I-VITE TABLET. PO SCH (07:52)
[2020-02-12] MEDS: ASPIRIN ENTERIC COATED 81 MG TABLET.DR. PO SCH (07:52)
[2020-02-12] MEDS: ARIPiprazole 2 MG TABLET PO SCH (07:52)
[2020-02-12] MEDS: CHOLECALCIFEROL (VITAMIN D3) 1,000 UNIT TABLET PO SCH (07:52)
[2020-02-12] MEDS: FLUoxetine HCL 10 MG CAPSULE PO SCH (07:53)
[2020-02-12] MEDS: LORazepam 0.5 MG TABLET PO SCH ×2 (07:55→20:57)
[2020-02-12 16:19] VITALS: BP 132/63
--- NOTE | 2020-02-12 17:44 | TX PLAN ---
Interdisciplinary Tx Plan Admission Information Feb 03, 2020 at 10:03 Legal Status (on Admission): Voluntary DPOA/Guardian Name: Pt is his own person Contact Other Contact Name: Viviane Rodarte Other Contact Verified Code Status: Full Code Allergies: Coded Allergies: atorvastatin (Verified Allergy, Unknown, 02/03/20) ezetimibe (Verified Allergy, Unknown, 02/03/20) Diagnoses Primary Diagnosis: MDD recurrent, severe Reasons for Admission: Depressed, Suicidal ideation, Other Problem in Patient's Words: He has always suffered from depression. But this is the worst I have seen him Additional Admission Comments: According to the intake, pt is very depressed and feels "antsy" all the time. Pt is having a "total mental breakdown", cold sweats, sits in the dark, fleeting thoughts of suicide, difficult to concentrate, decreased energy. Problems Active Problems: Withdrawn flat affect anxiety difficulty concentrating Inactive Problems: Medication compliance Pt Strengths/Limitations Ability for [place]: Fair Cognitive Functioning/Ability: Fair Communication Skills/Ability: Fair Financial Resources: Fair Insight/Judgement: Fair Intellectual Ability: Fair Physical Health: Fair Social Skills: Fair Stability in Family: Good Stability in School/Work: Fair Verbal Skills: Good Discharge Criteria Discharge Criteria: Able meet basic life need, Able to meet health needs, Adequate arrangements @DC, Verbal commit aftercare, Adequate self-care, Improved behavior, Improved mood/thought Preliminary Discharge Plan Preliminary DC Plan: Current Living Arrange. Special Precautions Fall Risk: Low Initial D/C Plan Pt will plan to discharge home with and continued [place] services Identified Discharge Needs: Primary Care follow-up Psychiatrist Counseling Currently Utilized Resources Currently Utilized Resources/P: PCP [place] services for mental health Referrals Community Resources: Counseling Identified Problems/Hx/Goals Objectives/Short-Term Goals Short Term Goals: Decrease Isolation, Dec. Symp. Depression, Medication Stabilization, Promote Coping Skill Short Term Goals in Patient's: Decrease suicidality and get out of here so I can get back to normal Interventions/Frequency Staff Interventions/Frequency&: Psychiatrist to assess pt at least 3x per week. Hand Wrapper Operator to assess pt at least 2x per week. Nursing to assess behavior, medications and complete 15 minute checks Encourage group participation or 1:1 engagement based of Activity Dept. assessment. 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 Treatment Plan Explained Patient/Configuration Consultant had this treatment plan explained to him/her as indicated by the signature below and has been given the opportunity to ask questions and make suggestions: Date: Patient/Configuration Consultant Signature: Status Update Update Pt participated in tx team via telephone. Pt is eating 100% of meals and sleeping on average 6.75 hours a night. Pt is calm, cooperative and interactive with staff. Pt is coming out of his room more and denying any SI. Pt reports that in talking to pt he sounds really good. Pt has services through the [place] and SW will aide in getting those set up prior to pt discharge. SW will speak with pt and pt later today and make final discharge plans for this week. Pt is on Abilify 1mg daily and Prozac 30mg daily. LEIGH ANN COLUNGA Feb 12, 2020 17:44
--- NOTE | 2020-02-12 21:58 | PDOC ---
Exam Note: Chago Note: Please also refer to the separate dictated note~for this date of service dictated separately.~Patient seen individually. Discussed the patient with Nursing staff reviewed the chart.~Reviewed interim history and current functioning. Reviewed vital signs,~Labs/ Radiology~and current medications noted below. Continue current treatment with the changes noted in the dictated addendum note Assessment: Vital Signs/I&O: Vital Signs Date Time Temp Pulse Resp B/P (MAP) Pulse Ox O2 Delivery O2 Flow Rate FiO2 02/12/20 16:19 99.2 93 18 132/63 (86) 93 02/10/20 16:16 Room Air I & O 02/11/20 02/11/20 02/12/20 15:00 23:00 07:00 Intake Total 600 ml 360 ml Balance 600 ml 360 ml Current Medications: I have reviewed the current psychotropics carefully including drug interactions. Risk benefit ratio favors no change other than as noted in my dictated progress note. Diagnosis: Problems: (1) Anxiety disorder, unspecified (2) MDD (major depressive disorder) EDUARDO RICH MD Feb 12, 2020 21:58
[2020-02-13 05:56] VITALS: BP 115/56
--- NOTE | 2020-02-13 07:11 | PDOC ---
Exam Note: Chago Note: This note is a late entry for 02/10/2020 covers elements not covered in my initial note. Subjective: The patient was evaluated face to face in the evening of 02/10/2020 with Eri KRISHNA. The patient slept 6-3/4 hours previous night. He has been talking to his , wanting to go home. We had a very lengthy discussion about activities he can be involved once he returns home including his car clubs amongst other things and associating with other friends who are part of his car club and outpatient follow-up at the [place]. He has been reading a novel given to him by his and as I addressed this with him he was well aware of the plot and the story and was quite accurate with this. Review of Systems: No CV, , pulmonary, eye system symptoms on review. Mental Status Exam: Reasonably oriented. Speech is coherent. Abstraction is fair. Computation is impaired. Language function intact. Mood and affect is improved. No suicidal or homicidal ideation. Laboratory Data: Reviewed. Impression: Major depressive disorder with psychotic features in partial remission. Rest unchanged. Plan: Continue psychotropics from initial note. Adjust further as clinically indicated. Assessment: Vital Signs/I&O: Vital Signs Date Time Temp Pulse Resp B/P (MAP) Pulse Ox O2 Delivery O2 Flow Rate FiO2 02/13/20 05:56 97.5 56 16 115/56 (75) 99 02/10/20 16:16 Room Air I & O 02/12/20 02/12/20 02/13/20 15:00 23:00 07:00 Intake Total 720 ml 240 ml 120 ml Balance 720 ml 240 ml 120 ml Current Medications: I have reviewed the current psychotropics carefully including drug interactions. Risk benefit ratio favors no change other than as noted in my dictated progress note. Diagnosis: Problems: (1) Anxiety disorder, unspecified (2) MDD (major depressive disorder) (3) Major depressive disorder with psychotic features EDUARDO RICH MD Feb 13, 2020 07:11
--- NOTE | 2020-02-13 07:48 | PDOC ---
Exam Note: Chago Note: This note is a late entry for 02/11/2020 covers elements not covered in my initial note. Subjective: The patient was evaluated on telehealth rounds in the evening of 02/11/2020 with Hansel Galvan RN. Nursing report was with Eri KRISHNA. Overall the patient has done better, reading a novel his had brought for him. He is appropriate. Denies suicidal ideation. Depression is improved. Review of Systems: No CV, , pulmonary, eye, ENT system symptoms on review. Mental Status Exam: Reasonably oriented. Speech is coherent. Abstraction is fair. Computation is impaired. Language function intact. Attention span is short. Mood and affect is showing improvement. Laboratory Data: Reviewed. Impression: Major depressive disorder with psychotic features in partial remission. Rest unchanged. Plan: We discussed at length activities he could involve with his car club etc post discharge. Continue psychotropics from initial note. Assessment: Vital Signs/I&O: Vital Signs Date Time Temp Pulse Resp B/P (MAP) Pulse Ox O2 Delivery O2 Flow Rate FiO2 02/13/20 05:56 97.5 56 16 115/56 (75) 99 02/10/20 16:16 Room Air I & O 02/12/20 02/12/20 02/13/20 15:00 23:00 07:00 Intake Total 720 ml 240 ml 120 ml Balance 720 ml 240 ml 120 ml Current Medications: I have reviewed the current psychotropics carefully including drug interactions. Risk benefit ratio favors no change other than as noted in my dictated progress note. Diagnosis: Problems: (1) Anxiety disorder, unspecified (2) MDD (major depressive disorder) (3) Major depressive disorder with psychotic features EDUARDO RICH MD Feb 13, 2020 07:48
[2020-02-13] MEDS: CHOLECALCIFEROL (VITAMIN D3) 1,000 UNIT TABLET PO SCH (07:49)
[2020-02-13] MEDS: ARIPiprazole 2 MG TABLET PO SCH (07:50)
[2020-02-13] MEDS: ASPIRIN ENTERIC COATED 81 MG TABLET.DR. PO SCH (07:50)
[2020-02-13] MEDS: FLUoxetine HCL 10 MG CAPSULE PO SCH (07:50)
[2020-02-13] MEDS: MULTIVITAMIN I-VITE TABLET. PO SCH (07:50)
[2020-02-13] MEDS: LORazepam 0.5 MG TABLET PO SCH ×2 (07:52→20:52)
[2020-02-13] MEDS ORDERED: ACET325T21 PO (16:15)
[2020-02-13 16:16] VITALS: BP 130/66
--- NOTE | 2020-02-13 22:08 | PDOC ---
Exam Note: Chago Note: Please also refer to the separate dictated note~for this date of service dictated separately.~Patient seen individually. Discussed the patient with Nursing staff reviewed the chart.~Reviewed interim history and current functioning. Reviewed vital signs,~Labs/ Radiology~and current medications noted below. Continue current treatment with the changes noted in the dictated addendum note Assessment: Vital Signs/I&O: Vital Signs Date Time Temp Pulse Resp B/P (MAP) Pulse Ox O2 Delivery O2 Flow Rate FiO2 02/13/20 16:16 97.6 67 16 130/66 (87) 95 Room Air I & O 02/12/20 02/12/20 02/13/20 15:00 23:00 07:00 Intake Total 720 ml 240 ml 120 ml Balance 720 ml 240 ml 120 ml Current Medications: I have reviewed the current psychotropics carefully including drug interactions. Risk benefit ratio favors no change other than as noted in my dictated progress note. Diagnosis: Problems: (1) Anxiety disorder, unspecified (2) Major depressive disorder with psychotic features (3) MDD (major depressive disorder) EDUARDO RICH MD Feb 13, 2020 22:07
[2020-02-14 06:40] VITALS: BP 121/52
--- NOTE | 2020-02-14 07:19 | PDOC ---
Exam Note: Chago Note: This note is a late entry for 02/12/2020 covers elements not covered in my initial note. Subjective: The patient was reviewed face to face in the morning of 02/12/2020 with treatment team meeting with Yu (social service staff), Cheryl, activity therapy, Eri KRISHNA, and patients Viviane. The patient slept 7 hours previous night. He has been pleasant, cooperative. Mood is better. No suicidal ideation. He has been reading some books that his had left for him. Review of Systems: No CV, , pulmonary, eye, ENT system symptoms on review. Reliability fair. Mental Status Exam: The patient is alert and oriented, quite verbal and interactive. He was able to describe the plot of the book he was reading. Abstraction is fair. Computation is impaired. Language function intact. Attention span is short. Mood and affect better. Laboratory Data: Reviewed. Impression: Major depressive disorder with psychotic features in partial remission. Rest unchanged. Plan: No change from initial note. Assessment: Vital Signs/I&O: Vital Signs Date Time Temp Pulse Resp B/P (MAP) Pulse Ox O2 Delivery O2 Flow Rate FiO2 02/14/20 06:40 97.8 51 18 121/52 (75) 97 02/13/20 16:16 Room Air I & O 02/13/20 02/13/20 02/14/20 15:00 23:00 07:00 Intake Total 840 ml 240 ml Balance 840 ml 240 ml Current Medications: I have reviewed the current psychotropics carefully including drug interactions. Risk benefit ratio favors no change other than as noted in my dictated progress note. Diagnosis: Problems: (1) Anxiety disorder, unspecified (2) Major depressive disorder with psychotic features (3) MDD (major depressive disorder) EDUARDO RICH MD Feb 14, 2020 07:19
--- NOTE | 2020-02-14 07:32 | PDOC ---
Exam Note: [place] Note: This note is a late entry for 02/13/2020 covers elements not covered in my initial note. Subjective: The patient was evaluated on telehealth rounds in the evening of 02/13/2020 because of the COVID-19 pandemic restrictions with [facility]. Nursing report was with Eri KRISHNA. Overall the patient has been appropriate. He spends much time in his room reading a book. He states his mood is better. No suicidal or homicidal ideation. Review of Systems: No CV, , pulmonary, eye, ENT system symptoms on review. Mental Status Exam: Reasonably oriented. Speech is coherent. Abstraction is fair. Computation is impaired. Language function intact. Mood and affect is improved, quite pleasant, smiling, interactive. Laboratory Data: Reviewed. Impression: Major depressive disorder with psychotic features in partial remission. Rest unchanged. Plan: No change from initial note. The patient will be discharged tomorrow to home with outpatient psychiatric and psychological follow up with [facility]. Assessment: Vital Signs/I&O: Vital Signs Date Time Temp Pulse Resp B/P (MAP) Pulse Ox O2 Delivery O2 Flow Rate FiO2 02/14/20 06:40 97.8 51 18 121/52 (75) 97 02/13/20 16:16 Room Air I & O 02/13/20 02/13/20 02/14/20 15:00 23:00 07:00 Intake Total 840 ml 240 ml Balance 840 ml 240 ml Current Medications: I have reviewed the current psychotropics carefully including drug interactions. Risk benefit ratio favors no change other than as noted in my dictated progress note. Diagnosis: Problems: (1) Anxiety disorder, unspecified (2) Major depressive disorder with psychotic features (3) MDD (major depressive disorder) EDUARDO RICH MD Feb 14, 2020 07:32
[2020-02-14] MEDS: FLUoxetine HCL 10 MG CAPSULE PO SCH (09:12)
[2020-02-14] MEDS: ASPIRIN ENTERIC COATED 81 MG TABLET.DR. PO SCH (09:12)
[2020-02-14] MEDS: MULTIVITAMIN I-VITE TABLET. PO SCH (09:12)
[2020-02-14] MEDS: LORazepam 0.5 MG TABLET PO SCH (09:12)
[2020-02-14] MEDS: ARIPiprazole 2 MG TABLET PO SCH (09:12)
[2020-02-14] MEDS: CHOLECALCIFEROL (VITAMIN D3) 1,000 UNIT TABLET PO SCH (09:13)
--- NOTE | 2020-02-14 22:08 | PDOC ---
Exam Note: [place] Note: Please also refer to the separate dictated note~for this date of service dictated separately.~Patient seen individually. Discussed the patient with Nursing staff reviewed the chart.~Reviewed interim history and current functioning. Reviewed vital signs,~Labs/ Radiology~and current medications noted below. Continue current treatment with the changes noted in the dictated addendum note Assessment: Vital Signs/I&O: Vital Signs Date Time Temp Pulse Resp B/P (MAP) Pulse Ox O2 Delivery O2 Flow Rate FiO2 02/14/20 06:40 97.8 51 18 121/52 (75) 97 02/13/20 16:16 Room Air I & O 02/13/20 02/13/20 02/14/20 15:00 23:00 07:00 Intake Total 840 ml 240 ml Balance 840 ml 240 ml Current Medications: I have reviewed the current psychotropics carefully including drug interactions. Risk benefit ratio favors no change other than as noted in my dictated progress note. Diagnosis: Problems: (1) Anxiety disorder, unspecified (2) Major depressive disorder with psychotic features (3) MDD (major depressive disorder) EDUARDO RICH MD Feb 14, 2020 22:08
--- NOTE | 2020-02-15 23:28 | DS ---
DATE OF DISCHARGE: 02/14/2020 DISCHARGE SUMMARY/PSYCHIATRIC PROGRESS NOTE This late entry 02/14/2020 covers elements not covered in my initial note. REASON FOR ADMISSION: Please refer to the admission history for details. Briefly, the patient is a 74-year-old male referred to us from the [facility] Psychiatry [facility] on account of worsening symptoms of depression, worsening anxiety, feeling "antsy" all the time. He was reportedly having a "total mental breakdown." He was having cold sweats sitting in the dark, having fleeting suicidal thoughts, difficulty concentrating, isolative, withdrawn, depressed, hopeless, helpless, and worthless. He had failed outpatient psychiatric interventions resulting in this referral. SIGNIFICANT FINDINGS AND CLINICAL COURSE: Following admission, the patient was seen daily individually by myself from a psychiatric standpoint, medical followup per Dr. Stevens/Dr. Boswell. The patient was felt to have akathisia and Abilify was reduced down to 1 mg a day, Prozac increased gradually to 30 mg a day, maintained on Ativan 0.5 mg b.i.d. for anxiety. Gradually mood appeared to improve. He was more interactive, verbal. Denied suicidal ideation. confirmed all of this during telephone conversations. REVIEW OF SYSTEMS: Prior to discharge on 02/14/2020, no CV, , pulmonary, eye, ENT system symptoms on review. MENTAL STATUS EXAM: Reasonably oriented. Speech is coherent, abstraction fair, computation impaired, language function intact, attention span fair. Mood and affect is improved. No suicidal ideation. LABORATORY DATA: Reviewed. IMPRESSION: Major depressive disorder with psychotic features in partial remission; anxiety disorder, unspecified. Rest unchanged from admission. DISCHARGE MEDICATIONS: Please refer to the MRAD. DISCHARGE INSTRUCTIONS: Outpatient psychiatric and medical followup at the [facility]. Time for discharge to management greater than 30 minutes. EDUARDO RICH MD DR: SOLIS/elijah JOB#: [id number] / [id number]
== END 2020-02-14 11:29 | disposition home or self-care (01) | DRG 885 ==
LOC: GEROPSY 10:03
PROVIDERS: ADMIT Psychiatry & Neurology Psychiatry; ATTEND Psychiatry & Neurology Psychiatry
DX: F33.3 Major depressive disorder, recurrent, severe with psychotic symptoms (principal); R45.851 Suicidal ideations; E11.9 Type 2 diabetes mellitus without complications; E78.5 Hyperlipidemia, unspecified; F41.9 Anxiety disorder, unspecified; I10 Essential (primary) hypertension; I71.4 Abdominal aortic aneurysm, without rupture; J44.9 Chronic obstructive pulmonary disease, unspecified; N28.9 Disorder of kidney and ureter, unspecified; N40.0 Benign prostatic hyperplasia without lower urinary tract symptoms; Z79.899 Other long term (current) drug therapy; Z85.828 Personal history of other malignant neoplasm of skin; N52.9 Male erectile dysfunction, unspecified; Z20.828 Contact with and (suspected) exposure to other viral communicable diseases; Z88.8 Allergy status to other drugs, medicaments and biological substances
CPT/HCPCS: 36415; 80053; 80061; 81001; 82306; 82607; 82947; 83036; 83540; 83550; 83735; 84436; 84443; 84480; 85025; 86592; 93005; U0003-CS